=== PATIENT | female | born 1985 | race Caucasian/White ===

== ENCOUNTER 2024-08-07 12:54 | Emergency (ER) | payer OTHER ==
[~2024-08-07] VITALS: Ht 167.6 cm; Wt 76.5 kg
[2024-08-07 13:48] VITALS: TEMP 97.5
[2024-08-07] MEDS: dexamethasone sod phosphate 10mg/ml inj IM STA (16:47)
[2024-08-07] MEDS: ketorolac trometh 30MG/ML vial 30 MG/ML VIAL IM STA (16:47)
[2024-08-07] MEDS ORDERED: METH-798 PO (17:04)
[2024-08-07] MEDS ORDERED: GABA-535 PO (17:04)
[2024-08-07] MEDS ORDERED: MELO-102 PO (17:04)
[2024-08-07 17:39] VITALS: BP 122/64; PULSE 75; RESP 16; O2SAT 98
== END 2024-08-07 17:43 | disposition home or self-care (01) ==
LOC: ER 12:55
DX: M25.551 Pain in right hip (principal); M54.50 Low back pain, unspecified; Z88.5 Allergy status to narcotic agent
CPT/HCPCS: 72100; 73502; 73564; 96372; 99284; J1100; J1885